=== PATIENT | female | born 1985 | race American Indian/Alaskan Native ===

== ENCOUNTER 2018-12-14 00:07 | Inpatient (IN) | payer MEDICAID ==
[~2018-12-14] VITALS: Ht 152.4 cm; Wt 72.7 kg
[2018-12-14] MEDS ORDERED: NO HOME MEDS (00:23)
--- NOTE | 2018-12-14 00:36 | NUR ---
U/S CALLED BACK AT 00:[address]
[2018-12-14] MEDS ORDERED: ondansetron/PF 4mg/2ml inj IV PRN (02:55)
[2018-12-14] MEDS ORDERED: HYDROcodone/acetaminophen 5mg/325mg tablet PO PRN (02:55)
[2018-12-14] MEDS ORDERED: normal saline 1000ml 1,000 ML IV ONE (02:55)
[2018-12-14] MEDS ORDERED: magnesium Cl slow-release 64mg tablet PO PRN (02:55)
[2018-12-14] MEDS ORDERED: potassium CL 10mEq/100ml bag 100 ML IV PRN ×2 (02:55)
[2018-12-14] MEDS ORDERED: potassium Cl 20 mEq SR tablet PO PRN ×2 (02:55)
[2018-12-14] MEDS ORDERED: acetaminophen 325mg tablet PO PRN ×2 (02:55)
[2018-12-14] MEDS ORDERED: morphine 2 MG/ML inj. syringe IV PRN (02:55)
[2018-12-14] MEDS ORDERED: magnesium 2GM in 50ml NS 50 ML IV PRN (02:55)
[2018-12-14] MEDS ORDERED: magnesium 4gm in 100ml NS 100 ML IV PRN (02:55)
[2018-12-14] MEDS ORDERED: HYDROcodone/acetaminophen 10/325mg tab PO PRN (02:55)
[2018-12-14] MEDS ORDERED: magnesium hydroxide 30ml (MOM) UD suspension PO PRN (02:55)
[2018-12-14] MEDS ORDERED: mag hydrox/Alum hydrox/simeth 30ml oral suspension PO PRN (02:55)
--- NOTE | 2018-12-14 03:20 | NUR ---
Patient in room . I have received report from Crystal HALE in ER and had the opportunity to ask questions and assume patient care. Patient arrived in a chair and appear comfortable with no sign of distress. She is in resting in bed.
[2018-12-14 03:30] VITALS: BP 113/62
[2018-12-14] MEDS: vancomycin/NS 1 GM ADD-VANTAGE 250 ML IV SCH ×2 (05:49→18:01)
[2018-12-14 05:52] LABS: BASOPHILS # (AUTO) 0.1 X10'3 (0-0.2); BASOPHILS % (AUTO) 0.4 % (0-1); EOSINOPHILS % (AUTO) 0 % (0-6); HEMATOCRIT 37.2 % (35.0-45.0); HEMOGLOBIN 12.5 g/dl (12.0-16.0); LYMPHOCYTES # (AUTO) 1.2 X10'3 (1.1-4.8); LYMPHOCYTES % (AUTO) 10.3 % (21-51); MEAN CORPUSCULAR HEMOGLOBIN 30.2 PG (27.0-31.0); MEAN CORPUSCULAR HGB CONC 33.6 g/dL (33.0-36.5); MEAN CORPUSCULAR VOLUME 89.9 FL (78-98); MONOCYTES # (AUTO) 0.2 X10'3 (0-0.9); MONOCYTES % (AUTO) 1.3 % (2-12); NEUTROPHILS # (AUTO) 10.2 X10'3 (1.8-7.7); PLATELET COUNT 366 X10'3 (140-440); RED BLOOD COUNT 4.14 X10'6 (4.20-5.60); RED CELL DISTRIBUTION WIDTH 13.1 % (11.5-14.5); WHITE BLOOD COUNT 11.6 X10'3 (4.5-11.0)
[2018-12-14 06:22] LABS: ANION GAP 11 (8-16); BLOOD UREA NITROGEN 12 MG/DL (7-18); CALCIUM 8.8 MG/DL (8.5-10.1); CHLORIDE 109 MMOL/L (99-107); GLUCOSE 153 MG/DL (70-104); POTASSIUM 4.2 MMOL/L (3.5-5.1); SODIUM 142 MMOL/L (135-145); TOTAL CARBON DIOXIDE 22.5 MMOL/L (24-32); eGFR 82 ML/MIN
[2018-12-14] MEDS: K and/or MAG REPLACEMENT MC SCH (06:29)
[2018-12-14 07:28] VITALS: BP 111/56
[2018-12-14] MEDS: enoxaparin 40mg/0.4ml syringe SQ SCH (08:00)
[2018-12-14] MEDS: CefTRIAXone/D5W-Rocephin 1gm 50 ML IV SCH (08:24)
[2018-12-14] MEDS ORDERED: nicotine 14mg patch - 24hr TD ONE (09:10)
[2018-12-14 12:00] VITALS: BP 95/55
--- NOTE | 2018-12-14 18:40 | NUR ---
Patient in room [facility]. I have received report from Светлана HALE and had the opportunity to ask questions and assume patient care.
--- NOTE | 2018-12-14 18:43 | NUR ---
Problems reprioritized. Patient report given, questions answered & plan of care reviewed with BREONNA HALE.
[2018-12-14] MEDS: lactobacillus rhamnosus 10,000 MMU CELLS/CAPSULE PO SCH (19:52)
[2018-12-14 20:00] VITALS: BP 96/49
[2018-12-15] VITALS: BP 96/48
[2018-12-15 05:33] LABS: BASOPHILS # (AUTO) 0.1 X10'3 (0-0.2); EOSINOPHILS # (AUTO) 0.2 X10'3 (0-0.9); EOSINOPHILS % (AUTO) 1.7 % (0-6); HEMATOCRIT 35.7 % (35.0-45.0); HEMOGLOBIN 11.9 g/dl (12.0-16.0); LYMPHOCYTES % (AUTO) 35.3 % (21-51); MEAN CORPUSCULAR HEMOGLOBIN 30.2 PG (27.0-31.0); MEAN CORPUSCULAR HGB CONC 33.4 g/dL (33.0-36.5); MEAN CORPUSCULAR VOLUME 90.3 FL (78-98); MONOCYTES # (AUTO) 0.6 X10'3 (0-0.9); MONOCYTES % (AUTO) 5.6 % (2-12); NEUTROPHILS # (AUTO) 6.4 X10'3 (1.8-7.7); NEUTROPHILS % (AUTO) 56.4 % (42-75); PLATELET COUNT 342 X10'3 (140-440); RED BLOOD COUNT 3.95 X10'6 (4.20-5.60); RED CELL DISTRIBUTION WIDTH 13.4 % (11.5-14.5); WHITE BLOOD COUNT 11.4 X10'3 (4.5-11.0)
[2018-12-15 05:46] LABS: ALBUMIN 2.6 G/DL (3.4-5.0); ANION GAP 8 (8-16); BLOOD UREA NITROGEN 13 MG/DL (7-18); BUN/CREATININE RATIO 27.1 (6.6-38.0); CALCIUM 7.8 MG/DL (8.5-10.1); CHLORIDE 110 MMOL/L (99-107); CREATININE 0.48 MG/DL (0.40-0.90); GLUCOSE 109 MG/DL (70-104); MAGNESIUM 1.7 MG/DL (1.5-2.4); POTASSIUM 3.8 MMOL/L (3.5-5.1); SODIUM 141 MMOL/L (135-145); TOTAL CARBON DIOXIDE 22.7 MMOL/L (24-32); eGFR > 90 ML/MIN
[2018-12-15] MEDS: vancomycin/NS 1 GM ADD-VANTAGE 250 ML IV SCH ×2 (06:03→17:59)
--- NOTE | 2018-12-15 06:30 | NUR ---
Patient in room [facility]. I have received report from Jackie HALE and had the opportunity to ask questions and assume patient care. Resting eyes closed respirations even.
--- NOTE | 2018-12-15 06:38 | NUR ---
Problems reprioritized. Patient report given, questions answered & plan of care reviewed with Crystal HALE and Rosie HALE.
[2018-12-15 07:37] VITALS: BP 105/68
[2018-12-15] MEDS: K and/or MAG REPLACEMENT MC SCH (08:00)
[2018-12-15] MEDS: enoxaparin 40mg/0.4ml syringe SQ SCH (08:00)
[2018-12-15] MEDS: CefTRIAXone/D5W-Rocephin 1gm 50 ML IV SCH (08:17)
[2018-12-15] MEDS: lactobacillus rhamnosus 10,000 MMU CELLS/CAPSULE PO SCH ×2 (08:18→20:09)
[2018-12-15] MEDS: nicotine 14mg patch - 24hr TD SCH (08:19)
[2018-12-15] MEDS ORDERED: chlordiazePOXIDE 25mg capsule PO PRN (09:05)
[2018-12-15] MEDS: morphine 2 MG/ML inj. syringe IV PRN ×2 (09:29→20:09)
--- NOTE | 2018-12-15 09:50 | NUR ---
WOUND INFECTION EDUCATION PROVIDED BY WOUND CARE 1. Patient instructed to call their primary doctor, or go the ED immediately if any of the following symptoms occur: * Increased pain in wound * Increase in drainage from the wound * Redness in the skin surrounding the wound * Warmth in the skin surrounding the wound * Bleeding from the wound * Temperature of 101 or greater 2. If any of these occur while in the hospital tell a nurse immediately. Addendum: 12/15/18 at 0952 by Celsa Maya RN Amended: Links added.
[2018-12-15 11:00] VITALS: BP 112/73
[2018-12-15] MEDS ORDERED: VANCOMYCIN LEVEL IV ONE (17:30)
--- NOTE | 2018-12-15 18:51 | NUR ---
Patient in room [facility]. I have received report from Rosie HALE and Crystal HALE and had the opportunity to ask questions and assume patient care.
--- NOTE | 2018-12-15 18:56 | NUR ---
Problems reprioritized. Patient report given, questions answered & plan of care reviewed with Jackie HALE. Patient sitting with family at bedside,
[2018-12-15 19:00] VITALS: BP 108/57
[2018-12-16] VITALS: BP 100/54
[2018-12-16 05:24] LABS: ALBUMIN 2.8 G/DL (3.4-5.0); ANION GAP 8 (8-16); BLOOD UREA NITROGEN 16 MG/DL (7-18); BUN/CREATININE RATIO 20.3 (6.6-38.0); CALCIUM 8.5 MG/DL (8.5-10.1); CHLORIDE 106 MMOL/L (99-107); CREATININE 0.79 MG/DL (0.40-0.90); GLUCOSE 95 MG/DL (70-104); POTASSIUM 4.1 MMOL/L (3.5-5.1); SODIUM 140 MMOL/L (135-145); TOTAL CARBON DIOXIDE 26.2 MMOL/L (24-32); eGFR 83 ML/MIN
[2018-12-16] MEDS: vancomycin/NS 1 GM ADD-VANTAGE 250 ML IV SCH (05:30)
--- NOTE | 2018-12-16 06:10 | NUR ---
Patient in room [facility]. I have received report from ALEXIA Mejia and had the opportunity to ask questions and assume patient care.
--- NOTE | 2018-12-16 06:35 | NUR ---
Problems reprioritized. Patient report given, questions answered & plan of care reviewed with Hodan HALE.
[2018-12-16 07:14] LABS: BASOPHILS # (AUTO) 0.1 X10'3 (0-0.2); BASOPHILS % (AUTO) 1.1 % (0-1); EOSINOPHILS # (AUTO) 0.3 X10'3 (0-0.9); EOSINOPHILS % (AUTO) 3.6 % (0-6); HEMATOCRIT 39.2 % (35.0-45.0); HEMOGLOBIN 13.2 g/dl (12.0-16.0); LYMPHOCYTES # (AUTO) 3.7 X10'3 (1.1-4.8); LYMPHOCYTES % (AUTO) 38.5 % (21-51); MEAN CORPUSCULAR HEMOGLOBIN 30.3 PG (27.0-31.0); MEAN CORPUSCULAR HGB CONC 33.5 g/dL (33.0-36.5); MEAN CORPUSCULAR VOLUME 90.2 FL (78-98); MEAN PLATELET VOLUME 8.1 FL (7.4-10.4); MONOCYTES # (AUTO) 0.7 X10'3 (0-0.9); MONOCYTES % (AUTO) 7.5 % (2-12); NEUTROPHILS # (AUTO) 4.8 X10'3 (1.8-7.7); NEUTROPHILS % (AUTO) 49.3 % (42-75); PLATELET COUNT 393 X10'3 (140-440); RED BLOOD COUNT 4.35 X10'6 (4.20-5.60); RED CELL DISTRIBUTION WIDTH 13.3 % (11.5-14.5); WHITE BLOOD COUNT 9.6 X10'3 (4.5-11.0)
[2018-12-16 07:15] VITALS: BP 103/58
[2018-12-16] MEDS: enoxaparin 40mg/0.4ml syringe SQ SCH (08:00)
[2018-12-16] MEDS ORDERED: vancomycin/NS 1 GM ADD-VANTAGE 250 ML IV SCH (08:00)
[2018-12-16] MEDS: K and/or MAG REPLACEMENT MC SCH (08:00)
[2018-12-16] MEDS ORDERED: CLIN-5 PO (09:06)
[2018-12-16] MEDS: lactobacillus rhamnosus 10,000 MMU CELLS/CAPSULE PO SCH (09:16)
[2018-12-16] MEDS: nicotine 14mg patch - 24hr TD SCH (09:18)
--- NOTE | 2018-12-16 11:40 | NUR ---
Patient discharged. PIV's removed: cath tips in tact. Education given to patient and family regarding smoking cessation, wound care, and follow up; they verbalized understanding. The patient has a follow up appointment with the [place] [facility] tomorrow (12/17) at [address] Ayala. They told our upper caser ALEXIA Lemus that they would be willing/able to follow her wound and do dressing changes. Our wound care nurse also told me that she gave education regarding how to change the dressing and some supplies. Patient was walked out by staff.
--- NOTE | 2018-12-16 12:45 | NUR ---
WOUND INFECTION EDUCATION PROVIDED BY WOUND CARE 1. Patient instructed to call their primary doctor, or go the ED immediately if any of the following symptoms occur: * Increased pain in wound * Increase in drainage from the wound * Redness in the skin surrounding the wound * Warmth in the skin surrounding the wound * Bleeding from the wound * Temperature of 101 or greater 2. If any of these occur while in the hospital tell a nurse immediately. Addendum: 12/16/18 at 1247 by Celsa Maya RN Amended: Links added.
[2018-12-17] MEDS ORDERED: VANCOMYCIN LEVEL IV ONE (07:30)
== END 2018-12-16 11:55 | disposition home or self-care (01) | DRG 385 ==
LOC: ER 00:09 → SUR 3N 03:48 → CMPBEDREQ 12-15 19:33
PROVIDERS: ADMIT Hospitalist; ATTEND Internal Medicine
DX: N61.1 Abscess of the breast and nipple (principal); L03.115 Cellulitis of right lower limb; F15.90 Other stimulant use, unspecified, uncomplicated; F17.200 Nicotine dependence, unspecified, uncomplicated; B95.62 Methicillin resistant Staphylococcus aureus infection as the cause of diseases classified elsewhere; I10 Essential (primary) hypertension; F32.9 Major depressive disorder, single episode, unspecified; F10.20 Alcohol dependence, uncomplicated; Z79.899 Other long term (current) drug therapy
CPT/HCPCS: 36415; 73700; 76642; 80048; 80202; 83735; 85025; 87070; 87075; 87077; 87081; 87186; 99285; G0378; J0696; J1650; J2270; J3370